=== PATIENT | female | born 1985 | race Caucasian/White ===

== ENCOUNTER 2020-10-11 17:53 | Emergency (ER) | payer MEDICAID ==
[~2020-10-11] VITALS: Ht 167.6 cm; Wt 60.0 kg
--- NOTE | 2020-10-11 18:00 | NUR ---
PT KENDRA FROM ASSISTED FOR C/O ROY & CP. PER EMS PT TOOK METH 2 DAYS AGO. PT C/O DULL L-SIDED CP THAT INCREASES WITH PALPITATIONS AND RESPIRATIONS W/ 5/10 PAIN. PT AXOX4, AMBULATORY TO ROOM. DENIES SOB, N/V. PT CHANGED INTO GOWN, MONITORS IN PLACE, CALL LIGHT WITHIN REACH. LAW ENFORCEMENT AT BS.
--- NOTE | 2020-10-11 18:34 | NUR ---
PA AT BS
--- NOTE | 2020-10-11 18:45 | NUR ---
REPORT TO REYES RYAN
--- NOTE | 2020-10-11 18:46 | NUR ---
REPORT RECEIVED FROM ERNA CHAMBERS
[2020-10-11 19:00] LABS: BASOPHILS % (AUTO) 1 % (0-1); EOSINOPHILS % (AUTO) 2 % (1-7); LYMPHOCYTES % (AUTO) 22 % (22-44); MEAN CORPUSCULAR HEMOGLOBIN 29.7 pg (27.0-34.8); MEAN PLATELET VOLUME 9.4 fL (7.4-10.4); MONOCYTES % (AUTO) 4 % (2-9); NEUTROPHILS % (AUTO) 71 % (42-75); PLATELET COUNT 245 x10^3/uL (130-400); RED BLOOD COUNT 4.62 x10^6/uL (3.82-5.3); RED CELL DISTRIBUTION WIDTH 13.8 % (9.6-15.2)
[2020-10-11] MEDS ORDERED: SODIUM CHLORIDE 0.9% 1,000ML IVBOLUS ONE (19:00)
[2020-10-11] MEDS ORDERED: ONDANSETRON 2MG/ML, 2ML IVPush ONE (19:00)
[2020-10-11] MEDS ORDERED: ONDANSETRON 2MG/ML, 2ML ONE (19:03)
[2020-10-11 19:07] LABS: ALANINE AMINOTRANSFERASE 20 U/L (12-78); ALBUMIN 3.2 g/dL (3.4-5.0); ANION GAP 5 mmol/L (5-15); CALCIUM 8.4 mg/dL (8.5-10.1); CHLORIDE 112 mmol/L (98-107)
[2020-10-11 19:12] LABS: ALKALINE PHOSPHATASE 71 U/L (45-117); BILIRUBIN,TOTAL 0.3 mg/dL (0.2-1.0); CREATININE 0.76 mg/dL (0.55-1.02); TOTAL PROTEIN 6.3 g/dL (6.4-8.2); TROPONIN I < 0.015 ng/mL (0.000-0.045)
--- NOTE | 2020-10-11 20:41 | NUR ---
PT REFUSING URINE SAMPLE AT THIS TIME. ERP AWARE
--- NOTE | 2020-10-11 21:02 | NUR ---
Patient given discharge instructions and they have confirmed that they understand the instructions. Patient ambulatory with steady gait. NAD, all questions answered appropriately, denies additional needs at this time. No personal belongings left in room after discharge. D/c ti law enforcement, cleared to go to senior care.
[2020-10-11 21:03] VITALS: BP 134/72
== END 2020-10-11 21:05 | disposition home or self-care (01) ==
LOC: ED 20:40
DX: R10.31 Right lower quadrant pain (principal); R07.89 Other chest pain; F15.10 Other stimulant abuse, uncomplicated; R00.0 Tachycardia, unspecified
CPT/HCPCS: 36415; 71045; 76830; 80053; 83880; 84484; 84703; 85025; 85379; 93005; 96361; 96374; 99285; J2405; J7030